=== PATIENT | female | born 1965 | race Caucasian/White ===

== ENCOUNTER 2017-06-17 10:02 | Emergency (ER) | payer OTHER ==
[2017-06-17 10:11] VITALS: RESP 18
[2017-06-17] MEDS ORDERED: Aluminum Hydroxide/Magnesium Hydroxide Susp (30 mL) PO STA (10:45)
[2017-06-17] MEDS ORDERED: Aluminum Hydroxide/Magnesium Hydroxide Susp (30 mL) ONE (10:50)
--- NOTE | 2017-06-17 11:28 | C.PDOC ---
History Of Present Illness 52 year old female, with no significant past medical history, presents to the ED for evaluation of epigastric abdominal pain which began around 4 days ago. Patient describes a burning sensation and states she feels hollow/emptiness in her epigastric region. Patient also reports nausea, but states she is unable to bring anything up. She has been drinking soup and tea with transient relief. Patient ate coffee and muffin this morning. She denies fever, chills, vomiting, headache, chest pain, shortness of breath, shortness of breath, recent weight changes. Patient reports occasional hisoty of smoking and drinking. PMD: Dr. Veronica Tran Time Seen by Provider: 06/17/17 10:35 Chief Complaint (Nursing): Abdominal Pain History Per: Patient History/Exam Limitations: no limitations Onset/Duration Of Symptoms: Days (4) Current Symptoms Are (Timing): Still Present Location Of Pain/Discomfort: Epigastric Radiation Of Pain To:: None Quality Of Discomfort: Burning, "Pain" Associated Symptoms: Nausea. denies: Fever, Chills, Vomiting, Chest Pain Additional History Per: Patient Abnormal Vaginal Bleeding: No Past Medical History Reviewed: Historical Data, Nursing Documentation, Vital Signs Vital Signs: Last Vital Signs Temp 98.3 F 06/17/17 11:34 Pulse 69 06/17/17 11:34 Resp 18 06/17/17 11:34 BP 142/84 06/17/17 11:34 Pulse Ox 99 06/17/17 12:36 - Medical History PMH: No Chronic Diseases Surgical History: No Surg Hx Family History: States: Unknown Family Hx - Social History Hx Tobacco Use: No Hx Alcohol Use: Yes Hx Substance Use: No - Immunization History Hx Tetanus Toxoid Vaccination: No Hx Influenza Vaccination: Yes Hx Pneumococcal Vaccination: No Review Of Systems Constitutional: Negative for: Fever, Chills Cardiovascular: Negative for: Chest Pain Respiratory: Negative for: Shortness of Breath Gastrointestinal: Positive for: Nausea, Abdominal Pain (epigastric ). Negative for: Vomiting Physical Exam - Physical Exam Appears: Non-toxic, No Acute Distress Skin: Normal Color, Warm, Dry Head: Atraumatic, Normacephalic Oral Mucosa: Moist Neck: Supple Chest: Symmetrical, No Deformity, No Tenderness Cardiovascular: Rhythm Regular, No Murmur Respiratory: Normal Breath Sounds, No Rales, No Rhonchi, No Wheezing Gastrointestinal/Abdominal: Soft, Tenderness (mild, epigastric ), No Guarding, No Rebound Extremity: Normal ROM, Capillary Refill (less than 2 seconds ) Neurological/Psych: Oriented x3, Normal Speech, Normal Cognition Gait: Steady ED Course And Treatment O2 Sat by Pulse Oximetry: 99 (on RA) Pulse Ox Interpretation: Normal Medical Decision Making Medical Decision Making: Impression: 52 year old female Differential Diagnosis includes but is not limited to: Gastritis Plan: * Maalox PO * Pepcid PO * Zofran PO * reassess and disposition Progress: Maalox PO, Pepcid PO, Zofran PO administered. Patient feeling better Disposition - Disposition Referrals: [facility] [Outside] Disposition: HOME/ ROUTINE Disposition Time: 13:00 Condition: STABLE Additional Instructions: Follow up with your doctor or the clinic. Take medications as indicated. Prescriptions: Famotidine [Pepcid] 1 tab PO BID #30 tab Instructions: Gastroesophageal Reflux Disease (ED) Forms: [facility] (Jordanian), General Discharge Instructions, Work Excuse - POA Present On Arrival: None - Clinical Impression Clinical Impression: Gastroesophageal reflux disease - Scribe Statement The provider has reviewed the documentation as recorded by the Scribe (Naila Foss) Provider Attestation: All medical record entries made by the Scribe were at my direction and personally dictated by me. I have reviewed the chart and agree that the record accurately reflects my personal performance of the history, physical exam, medical decision making, and the department course for this patient. I have also personally directed, reviewed, and agree with the discharge instructions and disposition.
[2017-06-17 11:34] VITALS: BP 142/84; PULSE 69; TEMP 98.3
[2017-06-17 11:36] VITALS: O2SAT 99
== END 2017-06-17 13:21 | disposition home or self-care (01) ==
LOC: C.ER 10:02
DX: K21.9 Gastro-esophageal reflux disease without esophagitis (principal)

== ENCOUNTER 2018-09-07 08:45 | Emergency (ER) | payer OTHER ==
[2018-09-07 08:55] VITALS: BP 121/76
--- NOTE | 2018-09-07 09:17 | C.PDOC ---
History Of Present Illness Patient reports sore throat and headache that began yesterday. Denies fever, cough, congestion, chest pain, dyspnea, nausea/vomiting, abdominal pain. She took Advil with some relief. Also complains of left shoulder pain, states that she injured her shoulder at work "a long time ago, sometime in 2018" but that for the past 2 months the pain has been worse. No new injury, numbness, weakness, paresthesias. Pain is worse with movement. Time Seen by Provider: 09/07/18 09:01 Chief Complaint (Nursing): ENT Problem Past Medical History Reviewed: Historical Data Vital Signs: Last Vital Signs Temp 99.2 F 09/07/18 08:53 Pulse 95 H 09/07/18 08:53 Resp 16 09/07/18 08:53 BP 121/76 09/07/18 08:53 Pulse Ox 96 09/07/18 08:53 ZACH Report Viewed: Yes - Medical History PMH: No Chronic Diseases Family History: States: Unknown Family Hx - Social History Hx Tobacco Use: No Hx Alcohol Use: Yes Hx Substance Use: No - Immunization History Hx Tetanus Toxoid Vaccination: No Hx Influenza Vaccination: No Hx Pneumococcal Vaccination: No Review Of Systems Except As Marked, All Systems Reviewed And Found Negative. Constitutional: Negative for: Fever ENT: Positive for: Throat Pain. Negative for: Ear Pain, Nose Congestion Cardiovascular: Negative for: Chest Pain Respiratory: Negative for: Cough Gastrointestinal: Negative for: Nausea, Vomiting, Abdominal Pain, Diarrhea Musculoskeletal: Positive for: Shoulder Pain Skin: Negative for: Rash Neurological: Negative for: Weakness, Numbness Physical Exam - Physical Exam Appears: Well, Non-toxic, No Acute Distress Skin: Normal Color, Warm, Dry Eye(s): bilateral: Normal Inspection Oral Mucosa: Moist Tongue: Normal Appearing Lips: Normal Appearing Teeth: Normal Dentition Throat: Erythema, No Exudate, No Drooling, No Mass Neck: Normal Cardiovascular: Rhythm Regular Respiratory: Normal Breath Sounds Gastrointestinal/Abdominal: Normal Exam Extremity: No Deformity, No Swelling Neurological/Psych: Oriented x3, Normal Speech Gait: Steady ED Course And Treatment O2 Sat by Pulse Oximetry: 96 Medical Decision Making Medical Decision Making: Rapid strep done and was negative. Advised supportive care at home- fluids, rest, tylenol/motrin as needed for fever or pain. Return to the ED for any new or worsening symptoms. Otherwise follow up with PMD as outpatient. Disposition - Disposition Disposition: HOME/ ROUTINE Disposition Time: 11:12 Condition: GOOD Additional Instructions: LORI MATA, thank you for letting us take care of you today. Your provider was Diane Gtz MD and you were treated for THROAT PAIN. The emergency medical care you received today was directed at your acute symptoms. If you were prescribed any medication, please fill it and take as directed. It may take several days for your symptoms to resolve. Return to the Emergency Department if your symptoms worsen, do not improve, or if you have any other problems. Please contact your doctor or call one of the physicians/clinics you have been referred to that are listed on the Patient Visit Information form that is included in your discharge packet. Bring any paperwork you were given at discharge with you along with any medications you are taking to your follow up visit. Our treatment cannot replace ongoing medical care by a primary care provider outside of the emergency department. Thank you for allowing the [facility] team to be part of your care today. If you had an X-Ray or CT scan: A Radiologist will review the ED reading if any change in treatment is needed we will contact you. If you had a blood, urine, or wound culture: It will take several days for the results, if any change in treatment is needed we will contact you. If you had an STI test: It will take 48 hours for the results. Please call after 1 week if you have not heard back. Instructions: Viral Pharyngitis (DC) Forms: [employer] (Armenian) - Clinical Impression Clinical Impression: Viral pharyngitis
[2018-09-07 11:32] VITALS: PULSE 92; RESP 18; TEMP 98.9; O2SAT 100
== END 2018-09-07 11:32 | disposition home or self-care (01) ==
LOC: C.ER 08:45
DX: J02.9 Acute pharyngitis, unspecified (principal)